=== PATIENT | female | born 1945 | race Two or more races ===

== ENCOUNTER 2019-07-10 09:35 | Inpatient (IN) | payer OTHER ==
[~2019-07-10] VITALS: Ht 149.9 cm; Wt 70.3 kg
[2019-07-10] MEDS ORDERED: ELIQUIS5 MG PO (10:31)
[2019-07-10] MEDS ORDERED: ENALAPRIL MALE2.5 MG PO (10:32)
[2019-07-10] MEDS ORDERED: TOPROL XL50 M1 (10:32)
[2019-07-10] MEDS ORDERED: NAPROXEN500 MG (10:33)
[2019-07-10] MEDS ORDERED: CITALOPRAM20 MG/10 M (10:33)
[2019-07-24] MEDS ORDERED: ENALAPRIL MALEAT5 MG PO (11:49)
[2019-07-24] MEDS ORDERED: METOPROLOL TAR100 MG PO (11:49)
[2019-07-24] MEDS ORDERED: AMIODARONE HCL200 MG PO (11:49)
[2019-07-24] MEDS ORDERED: BENZONATATE100 MG PO (11:50)
[2019-07-24] MEDS ORDERED: TUSSIN DM LIQU118 ML PO (11:50)
[2019-07-24] MEDS ORDERED: INTESTINEX680 M1 PO (11:50)
[2019-07-24] MEDS ORDERED: ZITHROMAX500 MG PO (11:52)
[2019-07-24] MEDS ORDERED: MEDROLPACK PO (11:53)
[2019-07-24] MEDS ORDERED: VENTOLIN HFA18 GM IH (11:54)
== END 2019-07-24 16:22 | disposition home or self-care (01) | DRG 439 ==
LOC: ER 09:35 → SURG 17:04 → SURH 07-17 10:06
PROVIDERS: ADMIT Internal Medicine
PROC: BW40ZZZ Ultrasonography of Abdomen (ICD-10-PCS; 2019-07-10)
PROC: 0FJB8ZZ Inspection of Hepatobiliary Duct, Via Natural or Artificial Opening Endoscopic (ICD-10-PCS; 2019-07-10)
PROC: 0FJD8ZZ Inspection of Pancreatic Duct, Via Natural or Artificial Opening Endoscopic (ICD-10-PCS; 2019-07-10)
PROC: BF14YZZ Fluoroscopy of Gallbladder, Bile Ducts and Pancreatic Ducts using Other Contrast (ICD-10-PCS; 2019-07-10)
PROC: 4A12X4Z Monitoring of Cardiac Electrical Activity, External Approach (ICD-10-PCS; principal; 2019-07-13)
PROC: 02HV33Z Insertion of Infusion Device into Superior Vena Cava, Percutaneous Approach (ICD-10-PCS; 2019-07-13)
PROC: 4A033R1 Measurement of Arterial Saturation, Peripheral, Percutaneous Approach (ICD-10-PCS; 2019-07-13)
PROC: 4A19X1Z Monitoring of Respiratory Capacity, External Approach (ICD-10-PCS; 2019-07-13)
PROC: 3E0F7GC Introduction of Other Therapeutic Substance into Respiratory Tract, Via Natural or Artificial Opening (ICD-10-PCS; 2019-07-13)
PROC: CB2YYZZ Tomographic (Tomo) Nuclear Medicine Imaging of Respiratory System using Other Radionuclide (ICD-10-PCS; 2019-07-20)
PROC: B245ZZZ Ultrasonography of Left Heart (ICD-10-PCS; 2019-07-23)
DX: K85.10 Biliary acute pancreatitis without necrosis or infection (principal); I48.20 Chronic atrial fibrillation, unspecified; J98.11 Atelectasis; J45.901 Unspecified asthma with (acute) exacerbation; E86.0 Dehydration; Z79.01 Long term (current) use of anticoagulants; E03.9 Hypothyroidism, unspecified; Z53.09 Procedure and treatment not carried out because of other contraindication; R09.02 Hypoxemia; Z91.19 Patient's noncompliance with other medical treatment and regimen

== ENCOUNTER 2021-08-30 01:19 | Inpatient (IN) | payer OTHER ==
[~2021-08-30] VITALS: Ht 149.9 cm; Wt 72.6 kg
[~2021-08-30 01:19] MED LIST: AMIODARONE HCL200 MG PO; BENZONATATE100 MG PO; CITALOPRAM20 MG/10 M; ELIQUIS5 MG PO; ENALAPRIL MALE2.5 MG PO; ENALAPRIL MALEAT5 MG PO; INTESTINEX680 M1 PO; MEDROLPACK PO; METOPROLOL TAR100 MG PO; NAPROXEN500 MG; TOPROL XL50 M1; TUSSIN DM LIQU118 ML PO; VENTOLIN HFA18 GM IH; ZITHROMAX500 MG PO
== END 2021-09-17 17:41 | disposition designated cancer center or children's hospital (05) | DRG 445 ==
LOC: ER 01:19 → MEDI 14:46
PROVIDERS: ADMIT Internal Medicine; ATTEND Internal Medicine
PROC: BF37ZZZ Magnetic Resonance Imaging (MRI) of Pancreas (ICD-10-PCS; 2021-08-30)
PROC: BW21YZZ Computerized Tomography (CT Scan) of Abdomen and Pelvis using Other Contrast (ICD-10-PCS; 2021-09-04)
PROC: 0FJD8ZZ Inspection of Pancreatic Duct, Via Natural or Artificial Opening Endoscopic (ICD-10-PCS; principal; 2021-09-05)
PROC: BF37ZZZ Magnetic Resonance Imaging (MRI) of Pancreas (ICD-10-PCS; 2021-09-09)
PROC: 0FJD8ZZ Inspection of Pancreatic Duct, Via Natural or Artificial Opening Endoscopic (ICD-10-PCS; 2021-09-12)
DX: K80.50 Calculus of bile duct without cholangitis or cholecystitis without obstruction (principal); K57.12 Diverticulitis of small intestine without perforation or abscess without bleeding; I48.20 Chronic atrial fibrillation, unspecified; K83.8 Other specified diseases of biliary tract; Z20.822 Contact with and (suspected) exposure to COVID-19; I10 Essential (primary) hypertension; Z79.01 Long term (current) use of anticoagulants